=== PATIENT | female | born 1975 | race Caucasian/White ===

== ENCOUNTER 2017-04-15 11:31 | Emergency (ER) | payer OTHER ==
[~2017-04-15] VITALS: Ht 149.9 cm; Wt 117.9 kg
[~2017-04-15 11:31] MED LIST: MOTRIN800 MG PO; ULTRACET PO; VISTARIL50 MG PO
[2017-04-15] MEDS ORDERED: SIMVASTATIN10 MG (13:16)
[2017-04-15] MEDS ORDERED: ECOTRIN325 M1 (13:16)
[2017-04-15] MEDS ORDERED: ARMOUR THYROID15 MG (13:17)
== END 2017-04-15 18:59 | disposition home or self-care (01) ==
LOC: ER 11:31
DX: N39.0 Urinary tract infection, site not specified (principal)

== ENCOUNTER 2018-07-20 12:27 | Emergency (ER) | payer OTHER ==
[~2018-07-20] VITALS: Ht 124.5 cm; Wt 104.3 kg
[~2018-07-20 12:27] MED LIST changes: +ARMOUR THYROID15 MG; +ECOTRIN325 M1; +SIMVASTATIN10 MG
[2018-07-20] MEDS ORDERED: ZOCOR20 MG (12:32)
== END 2018-07-20 17:00 | disposition home or self-care (01) ==
LOC: ER 12:27
DX: J40 Bronchitis, not specified as acute or chronic (principal)

== ENCOUNTER 2020-11-27 08:00 | Outpatient (CLI) | payer OTHER ==
[~2020-11-27 08:00] MED LIST changes: +ZOCOR20 MG
== END 2020-11-27 08:30 | disposition home or self-care (01) ==
LOC: PPH VACUNA 08:00
PROVIDERS: ATTEND Emergency Medicine Pediatric Emergency Medicine
DX: Z23 Encounter for immunization (principal)

== ENCOUNTER 2023-10-02 16:32 | Emergency (ER) | payer OTHER ==
[~2023-10-02] VITALS: Ht 149.9 cm; Wt 111.1 kg
[2023-10-02] MEDS ORDERED: ARMOUR THYROID90 MG PO (16:51)
[2023-10-02] MEDS ORDERED: LIPITOR20 MG PO (16:52)
[2023-10-02] MEDS ORDERED: ABANEU-SL TABL1 EACH (16:52)
[2023-10-02 18:19] LABS: HEMATOCRIT 36.5 % (36.0-45.00); HEMOGLOBIN 12.3 g/dL (12.0-15.00); MEAN CELL VOLUME 85.2 fL (80.00-100.00); MEAN CORPUSCULAR HEMOGLOBIN 28.6 pg (27.00-32.0); MEAN CORPUSCULAR HGB CONC 33.6 g/dl (32.0-36.0); PLATELET COUNT 301 K/uL (150-450); RED BLOOD COUNT 4.29 M/uL (4.00-6.00); RED CELL DISTRIBUTION WIDTH 14.1 % (11.5-14.5)
== END 2023-10-02 20:04 | disposition home or self-care (01) ==
LOC: ER 16:34
PROVIDERS: Nurse Practitioner Family
DX: N93.9 Abnormal uterine and vaginal bleeding, unspecified (principal)